=== PATIENT | male | born 1980 | race Caucasian/White ===

== ENCOUNTER 2020-12-17 18:26 | Emergency (ER) | payer OTHER ==
[~2020-12-17 18:26] MED LIST: NORCO 5-325 TA1 EACH PO
[2020-12-18] MEDS ORDERED: PHENERGAN 25 MG25 M1 PO (01:57)
[2020-12-18] MEDS ORDERED: ZOFRAN ODT 4 MG4 MG SL (01:57)
== END 2020-12-17 19:00 | disposition left against medical advice (07) ==
LOC: ER1 18:26
DX: Z53.21 Procedure and treatment not carried out due to patient leaving prior to being seen by health care provider (principal)

== ENCOUNTER 2020-12-17 20:08 | Emergency (ER) | payer OTHER ==
[2020-12-17 20:59] LABS: HEMOGLOBIN 15.2 gm/dl (14.0-17.5); RED BLOOD COUNT 4.51 M/UL (4.20-5.50); WHITE BLOOD COUNT 8.3 K/UL (4.5-11.0)
[2020-12-17 21:42] LABS: BUN/CREATININE RATIO 10 (0-10)
[2020-12-18] MEDS ORDERED: PHENERGAN 25 MG25 M1 PO (01:57)
[2020-12-18] MEDS ORDERED: ZOFRAN ODT 4 MG4 MG SL (01:57)
== END 2020-12-18 03:25 | disposition home or self-care (01) ==
LOC: ER1 20:08
PROVIDERS: Physician Assistant
DX: K85.90 Acute pancreatitis without necrosis or infection, unspecified (principal); F17.200 Nicotine dependence, unspecified, uncomplicated; Z79.01 Long term (current) use of anticoagulants
CPT/HCPCS: 80053; 82150; 83605; 83690; 85025; 86850; 86900; 86901; 87040; 93005; 96374; 96375; 96376; 99284; J1170; J2270; J2405; Q9967